=== PATIENT | male | born 1965 | race Caucasian/White ===

== ENCOUNTER 2024-06-01 05:23 | Observation (INO) ==
[2024-06-01] MEDS: Al Hydrox/Mg Hydrox/Simet LIQ 30 ML UDC PO ONE (05:53)
[2024-06-01] MEDS: Lactated Ringers 1000 ml BAG 1,000 ML IV ONE (06:23)
[2024-06-01] MEDS: Famotidine IV 10 MG/ML 2 ml VIAL (20 mg) IV SLOW PU ONE (06:23)
[2024-06-01 06:34] LABS: ABS Lymphocytes 0.6 10^3/uL (1.0-4.8); ABS Monocytes 0.3 10^3/uL (0.0-1.1); ABS Neutrophils 8.8 10^3/uL (1.5-7.6); Eosinophil % 0.2 %; Hematocrit 41.2 % (38-53); Hemoglobin 14.5 g/dL (13.2-16.3); Lymphocyte % 5.8 %; Mean Corpuscular Hemoglobin 31.9 pg (27-33); Mean Corpuscular Hgb Conc 35.1 g/dL (31-36); Mean Corpuscular Volume 90.9 fL (80-97); Mean Platelet Volume 8.1 fL (7.5-11.2); Platelet Count 224 10^3/uL (150-450); Red Blood Count 4.53 10^6/uL (4.06-5.63); White Blood Count 9.7 10^3/uL (3.6-10.2)
[2024-06-01 06:40] LABS: INR 0.95 (0.85-1.14)
[2024-06-01 07:26] LABS: Albumin 4.6 g/dL (3.5-5.7); Albumin/Globulin Ratio 1.9 (1-3); Calcium 9.3 mg/dL (8.6-10.3); Creatinine, Serum 1.09 mg/dL (0.67-1.17); Globulin 2.4 g/dL (2-4); Potassium 3.8 mmol/L (3.5-5.0); Total Bilirubin 0.5 mg/dL (0.2-1.0); eGFR CKD-EPI 79.2 (>60)
[2024-06-01 07:59] LABS: High Sensitivity Troponin 1 Hr 5 pg/mL (<20)
[2024-06-01] MEDS: Iohexol 350 (CONTRAST) 500 ML MDV IV ONE (08:28)
[2024-06-01] MEDS: cefTRIAXone 1 gm/50 mL D5W 1 GM/50 ML BAG IV ONE (09:25)
[2024-06-01] MEDS ORDERED: Magnesium Hydroxide LIQ 30 ML UDC PO PRN (10:11)
[2024-06-01] MEDS: NS 0.9% 1000 ml BAG 1,000 ML IV SCH ×2 (10:23→16:16)
[2024-06-01] MEDS ORDERED: Calcium Carb (TUMS) 500 mg CHEW TAB PO PRN (10:27)
[2024-06-01 11:11] LABS: C Reactive Protein 1.42 mg/L (<8.01)
[2024-06-01] MEDS: Enoxaparin 40 MG/0.4 ML SYR SUBCUT SCH (13:51)
[2024-06-01] MEDS: Thiamine 100 MG/ML 2 ml VIAL (200 mg) IM ONE (13:52)
[2024-06-01] MEDS: LEVETIRACETAM 500 MG PO SCH (13:53)
[2024-06-02 07:11] LABS: Albumin 3.9 g/dL (3.5-5.7); Albumin/Globulin Ratio 1.9 (1-3); Calcium 8.9 mg/dL (8.6-10.3); Creatinine, Serum 1.09 mg/dL (0.67-1.17); Globulin 2.1 g/dL (2-4); Magnesium 1.9 mg/dL (1.9-2.7); Potassium 3.8 mmol/L (3.5-5.0); Total Bilirubin 1.9 mg/dL (0.2-1.0); eGFR CKD-EPI 79.2 (>60)
[2024-06-02 08:14] LABS: ABS Eosinophils 0.1 10^3/uL (0.0-0.5); ABS Lymphocytes 0.9 10^3/uL (1.0-4.8); ABS Monocytes 0.6 10^3/uL (0.0-1.1); ABS Neutrophils 9.7 10^3/uL (1.5-7.6); ABS Nucleated RBC 0.01 10^3/ul; Eosinophil % 0.6 %; Hematocrit 35.7 % (38-53); Hemoglobin 12.8 g/dL (13.2-16.3); Lymphocyte % 7.9 %; Mean Corpuscular Hemoglobin 32.8 pg (27-33); Mean Corpuscular Hgb Conc 35.7 g/dL (31-36); Mean Corpuscular Volume 91.8 fL (80-97); Nucleated Red Blood Cells % 0.1 %/100WBC (0.0-0.8); Platelet Count 162 10^3/uL (150-450); Red Blood Count 3.89 10^6/uL (4.06-5.63); Red Cell Distribution Width 12.9 % (12-17); White Blood Count 11.3 10^3/uL (3.6-10.2)
[2024-06-02] MEDS: Multivitamins/Minerals TAB PO SCH (08:52)
[2024-06-02] MEDS: cefTRIAXone 1 gm/50 mL D5W 1 GM/50 ML BAG IV SCH (08:54)
[2024-06-02] MEDS: Cholecalciferol (VIT D3) 1,000 unit TAB PO SCH (09:06)
[2024-06-02] MEDS: Azithromycin 250 MG in NS 0.9% 250 ml 250 ML IVPB SCH (09:46)
[2024-06-03 11:26] VITALS: BP 119/80
== END 2024-06-03 13:17 | disposition home or self-care (01) ==
LOC: EDHOLD 05:23 → ED 05:23 → SUATTDRO 10:11 → MEDTELE 12:59
PROVIDERS: ADMIT Internal Medicine; ATTEND Hospitalist